=== PATIENT | female | born 1995 | race Caucasian/White ===

== ENCOUNTER 2018-06-18 02:18 | Emergency (ER) | payer BC ==
[2018-06-18] MEDS ORDERED: Ketorolac INJ* 30 MG/ML 1 ML VIAL IV PUSH ONE (02:48)
[2018-06-18] MEDS ORDERED: NS 0.9% 1000 ML* 1,000 ML IV ONE (02:48)
[2018-06-18] MEDS ORDERED: PROCHLORPERAZINE INJ 5 MG/ML 2 ML VIAL IV ONE (02:48)
[2018-06-18] MEDS ORDERED: diPHENhydraMINE IV* 50 MG in NS 0.9% 50 ML* 50 ML IVPB ONE (02:49)
--- NOTE | 2018-06-18 02:54 | ED ---
Headache - HPI Summary HPI Summary: 22 year old F presenting to [facility] accompanied by female friend complains of throbbing headache located in diffusely in the back of her head since 07:00 yesterday. The patient rates the pain 10/10 in severity. Symptoms aggravated by nothing. Symptoms alleviated by nothing. She reports nausea, blurred vision, ear ache, and neck pain. She notes recent sinus infection 1.5 weeks ago with associated cough and itchy throat, all of which has since resolved. She denies vomiting and fever. Patient has hx migraine. - History Of Current Complaint Chief Complaint: EDHeadache Stated Complaint: MIGRAINE Time Seen by Provider: 06/18/18 02:35 Hx Obtained From: Patient Onset/Duration: Started hours ago - 07:00 yesterday, Still Present Character: Throbbing Aggravating Factor: Nothing Allevating Factors: Nothing Associated Signs And Symptoms: Other (Noted In Comments) - nausea, blurred vision, ear ache, and neck pain; NEGATIVE: vomiting and fever - Allergies/Home Medications Allergies/Adverse Reactions: Allergies Allergy/AdvReac Type Severity Reaction Status Date / Time sumatriptan [From Imitrex] Allergy See Comment Verified 06/18/18 02:21 Home Medications: Home Medications NK [No Home Medications Reported] 06/18/18 [History Confirmed 06/18/18] PMH/Surg Hx/FS Hx/Imm Hx Previously Healthy: No GI History: Reports: Hx Irritable Bowel Neurological History: Reports: Hx Migraine Psychiatric History: Reports: Other Psychiatric Issues/Disorders - Hx non- suicidal self-injury - Surgical History Surgery Procedure, Year, and Place: None Infectious Disease History: No Infectious Disease History: Denies: Traveled Outside the [place] in Last 30 Days - Family History Known Family History: Negative: Blood Disorder - Social History Hx Substance Use: No Substance Use Type: Reports: None Hx Tobacco Use: No Smoking Status (MU): Never Smoked Tobacco Review of Systems Negative: Fever Positive: Blurred Vision Positive: Ear Ache Positive: Nausea. Negative: Vomiting Positive: Other - neck pain Positive: Headache All Other Systems Reviewed And Are Negative: Yes Physical Exam - Summary Physical Exam Summary: Appearance: Well-appearing, Well-nourished, lying in bed comfortably Skin: Warm, dry, no obvious rash Eyes: sclera anicteric, no conjunctival pallor ENT: mucous membranes moist, pharynx appears normal. No sinus tenderness. Neck: Soft tissue tenderness on back of head and neck with pain upon flexion of the neck. No paulette meningismus. Respiratory: Clear to auscultation, no signs of respiratory distress Cardiovascular: Normal S1, S2. No murmurs. Normal distal pulses in tibial and radial bilaterally. Abdomen: Soft, nontender, normal active bowel sounds present Musculoskeletal: Normal, Strength/ROM Intact Neurological: A&Ox3, awake and alert, mentation is normal, speech is fluent and appropriate Psychiatric: affect is normal, does not appear anxious or depressed Triage Information Reviewed: Yes Vital Signs On Initial Exam: Initial Vitals Temp Pulse Resp BP Pulse Ox 97.7 F 90 16 115/70 100 06/18/18 02:19 06/18/18 02:19 06/18/18 02:19 06/18/18 02:19 06/18/18 02:19 Vital Signs Reviewed: Yes Diagnostics - Vital Signs Vital Signs Temp Pulse Resp BP Pulse Ox 06/18/18 02:19 97.7 F 90 16 115/70 100 - Laboratory Lab Statement: Any lab studies that have been ordered have been reviewed, and results considered in the medical decision making process. Headache Course/Dx - Course Course Of Treatment: 22 year old F presenting to [facility] accompanied by female friend complains of throbbing migraine located in diffusely in the back of her head since 07:00 yesterday. In ED course, patient was given Benadryl, Toradol, Compazine, and IV fluids, after which patient felt better. She reports that headache is gone and that she would like to go home. Discussed discharge plan with patient. She was instructed to return to ED for new or worsening symptoms. She is agreeable to discharge. She will be discharged. - Diagnoses Provider Diagnoses: Headache Discharge - Sign-Out/Discharge Documenting (check all that apply): Patient Departure - Discharge - Discharge Plan Condition: Good Disposition: HOME Patient Education Materials: Acute Headache (ED) Referrals: [facility] [Outside] - If Needed No Primary Care Phys,NOPCP [Primary Care Provider] - - Attestation Statements Document Initiated by Scribe: Yes Documenting Scribe: Melody Kiran Provider For Whom Scribe is Documenting (Include Credential): Quentin Humphries MD Scribe Attestation: Melody Kaiser, scribed for Quentin Humphries MD on 06/18/18 at 0358. Status of Scribe Document: Ready
[2018-06-18] MEDS ORDERED: diPHENhydraMINE PO* 50 MG ONE (02:55)
[2018-06-18] MEDS ORDERED: diPHENhydraMINE PO* 50 MG PO ONE (03:05)
[2018-06-18 04:29] VITALS: BP 128/85
== END 2018-06-18 04:31 | disposition home or self-care (01) ==
LOC: ED 02:18
DX: R51 Headache (principal); R11.0 Nausea; H53.8 Other visual disturbances; H92.09 Otalgia, unspecified ear; M54.2 Cervicalgia
CPT/HCPCS: 96374; 96375; 99282; A9270-GY; J0780; J1885